=== PATIENT | female | born 1980 | race Caucasian/White ===

== ENCOUNTER 2019-05-07 05:41 | Emergency (ER) | payer OTHER ==
[~2019-05-07] VITALS: Ht 154.9 cm; Wt 110.6 kg
[2019-05-07 05:41] VITALS: BP 137/87
--- NOTE | 2019-05-07 06:10 | PHYS DOC ---
Adult General Chief Complaint Chief Complaint: CHEST PAIN [facility] HPI 38-year-old female presents with chest pain. Patient states she's had intermittent chest pain for the last 1 week. The pain starts in her central chest and has radiated to her left arm and her upper back. It appears to be worse with heavy exertion, mostly with lifting boxes. She works as a packaging person. She feels that she is more short of breath doing tasks than normal. This "came out of nowhere". She was not having any issues until recently. Patient also feels like she may have a rapid heartbeat with exertion, but also sometimes when she is standing still. She does not feel like she has a rapid heartbeat at this time. No known family history of arrhythmia. The patient has no personal asthma history. She is not a smoker. She denies fever or chills Review of Systems Review of Systems Constitutional: Denies fever or chills [] Eyes: Denies change in visual acuity, redness, or eye pain [] HENT: Denies nasal congestion or sore throat [] Respiratory: Shortness of breath [] Cardiovascular: No additional information not addressed in HPI [] GI: Denies abdominal pain, nausea, vomiting, bloody stools or diarrhea [] : Denies dysuria or hematuria [] Musculoskeletal: Denies back pain or joint pain [] Integument: Denies rash or skin lesions [] Neurologic: Denies headache, focal weakness or sensory changes [] Endocrine: Denies polyuria or polydipsia [] All other systems were reviewed and found to be within normal limits, except as documented in this note. Allergies Allergies Allergies Coded Allergies Type Severity Reaction Last Updated Verified Penicillins Allergy Unknown 05/07/19 Yes erythromycin base Allergy Unknown 05/07/19 Yes Physical Exam Physical Exam Constitutional: Well developed, morbidly obesity, well nourished, no acute distress, non-toxic appearance. [] HENT: Normocephalic, atraumatic, bilateral external ears normal, oropharynx moist, no oral exudates, nose normal. [] Eyes: PERRLA, EOMI, conjunctiva normal, no discharge. [] Neck: Normal range of motion, no tenderness, supple, no stridor. [] Cardiovascular:Heart rate regular rhythm, no murmur [] Lungs & Thorax: Bilateral breath sounds clear to auscultation [] Abdomen: Bowel sounds normal, soft, no tenderness, no masses, no pulsatile masses. [] Skin: Warm, dry, no erythema, no rash. [] Back: No tenderness, no CVA tenderness. [] Extremities: No tenderness, no cyanosis, no clubbing, ROM intact, no edema. [] Neurologic: Alert and oriented X 3, normal motor function, normal sensory function, no focal deficits noted. [] Psychologic: Affect normal, judgement normal, mood normal. [] EKG EKG Sinus rhythm, rate 75, normal axis, no ST elevations or depressions.[] Radiology/Procedures Radiology/Procedures [] Impressions: Two-view chest dated 05/07/2019. No comparison available. Clinical data indication: Chest pain. FINDINGS: PA and lateral views obtained. Heart and mediastinal contours within normal limits. Lungs are somewhat hyperinflated but otherwise clear. No consolidation or pleural effusion. No pneumothorax. IMPRESSION: No acute radiographic abnormality. Electronically signed by: Aguilar Thomson MD (05/07/2019 6:17 AM) [facility] DICTATED AND SIGNED BY: AGUILAR THOMSON MD DATE: 05/07/19 0617 CC: JODY GANDHI DO; PCP,NO ~ Course & Med Decision Making Course & Med Decision Making Pertinent Labs and Imaging studies reviewed. (See chart for details) The patient's EKG is unremarkable. Her labs are unremarkable. Her troponin is negative. Chest x-ray is negative for acute findings. Her HEART score is 2. Based on what the patient is telling me, she could be struggling more with the recent extremely high humidity. She could also be going in and out of an arrhythmia, though this is merely speculation as I have no evidence of this. I have recommended to the patient that she should follow up with her primary care physician to discuss an outpatient stress test and possibly an event monitor. She is stable for discharge at this time. [] Dragon Disclaimer Dragon Disclaimer This electronic medical record was generated, in whole or in part, using a voice recognition dictation system. The HEART Score for CP Pts HEART Score for Chest Pain: HEART Score for Chest Pain Response (Comments) Value History Moderately Suspicious 1 ECG Normal 0 Age < 45 0 Risk Factors 1 or 2 Risk Factors 1 Troponin < Normal Limit 0 Total 2 Risk Factors: Risk Factors: DM, Current or recent (<one month) smoker, HTN, HLP, family history of CAD, obesity. Risk Scores: Score 0 - 3: 2.5% MACE over next 6 weeks - Discharge Home Score 4 - 6: 20.3% MACE over next 6 weeks - Admit for Clinical Observation Score 7 - 10: 72.7% MACE over next 6 weeks - Early Invasive Strategies Departure Departure: Impression: Primary Impression: Chest pain Disposition: 01 HOME, SELF-CARE Condition: STABLE Referrals: PCP,NO (PCP) Patient Instructions: Chest Pain (Nonspecific), [id number] Problem Qualifiers Primary Impression: Chest pain Chest pain type: precordial pain Qualified Codes: R07.2 - Precordial pain JODY GANDHI DO May 07, 2019 06:10
--- NOTE | 2019-05-07 06:13 | EKG ---
[address] [address] Test Date: 2019-05-07 Test Time: 05:56:08 Pat Name: DANIA RENTERIA Department: Room: Gender: F [employer] Att[employer]: : 1980 Requested By: JDOY GANDHI Order Number: [id number] Reading MD: Measurements Intervals [place] Rate: 75 P: 55 WI: 148 QRS: 51 QRSD: 80 T: 16 QT: 370 QTc: 416 Interpretive Statements SINUS RHYTHM QRS(T) CONTOUR ABNORMALITY CONSIDER ANTEROLATERAL MYOCARDIAL DAMAGE POSSIBLY ABNORMAL ECG RI6.01 No previous ECG available for comparison
--- NOTE | 2019-05-07 06:20 | RAD ---
Two-view chest dated 05/07/2019. No comparison available. Clinical data indication: Chest pain. FINDINGS: PA and lateral views obtained. Heart and mediastinal contours within normal limits. Lungs are somewhat hyperinflated but otherwise clear. No consolidation or pleural effusion. No pneumothorax. IMPRESSION: No acute radiographic abnormality. Electronically signed by: Fabio Thomson MD (05/07/2019 6:17 AM) [facility]
[2019-05-07 06:25] LABS: ALBUMIN 4.2 g/dL (3.4-5.0); CALCIUM 9.2 mg/dL (8.5-10.1); CREATININE 0.9 mg/dL (0.6-1.0); GFR 70.5; POTASSIUM 3.6 mmol/L (3.5-5.1); TOTAL BILIRUBIN 0.2 mg/dL (0.2-1.0); TOTAL PROTEIN 8.6 g/dL (6.4-8.2)
[2019-05-07 06:26] LABS: BASO # 0.1 x10^3/uL (0.0-0.2); BASO % 1 % (0-3); EOS # 0.1 x10^3/uL (0.0-0.7); EOS % 2 % (0-3); HEMATOCRIT 40.7 % (36.0-47.0); HEMOGLOBIN 13.3 g/dL (12.0-15.5); LYMPH # 3.3 x10^3/uL (1.0-4.8); LYMPH % 42 % (24-48); MEAN CORPUSCULAR HEMOGLOBIN 30 pg (25-35); MEAN CORPUSCULAR HGB CONC 33 g/dL (31-37); MEAN CORPUSCULAR VOLUME 91 fL (79-100); MONO # 0.7 x10^3/uL (0.0-1.1); MONO % 9 % (0-9); NEUT # 3.7 x10^3uL (1.8-7.7); NEUT % 47 % (31-73); PLATELET COUNT 250 x10^3/uL (140-400); RED BLOOD COUNT 4.47 x10^6/uL (3.50-5.40); RED CELL DISTRIBUTION WIDTH 13.8 % (11.5-14.5)
== END 2019-05-07 06:49 | disposition home or self-care (01) ==
LOC: ER 05:41
DX: R07.2 Precordial pain (principal); Z88.0 Allergy status to penicillin; Z88.1 Allergy status to other antibiotic agents
CPT/HCPCS: 36415; 71046; 80053; 84484; 85025; 93005; 99285

== ENCOUNTER 2019-09-21 18:42 | Emergency (ER) | payer OTHER ==
[~2019-09-21] VITALS: Ht 157.5 cm; Wt 112.0 kg
[2019-09-21 18:54] VITALS: BP 125/74
--- NOTE | 2019-09-21 19:12 | PHYS DOC ---
Past History Past Medical History: No Pertinent History Past Surgical History: , Other Additional Past Surgical Histo: D&C Alcohol Use: Occasionally Drug Use: None Adult General Chief Complaint Chief Complaint: EARACHE/EAR PAIN HPI HPI 8-year-old female presents with hyperacute hearing. The patient tells me that last few days at work she has felt like her hearing is more sensitive than normal. She has had to wear earplugs for normal noises at work that she has not been wearing hearing protection for the past. She just wants to make sure there is not a problem that is causing this. She denies nasal congestion, cough or any other upper respiratory infection symptoms. Denies trauma. Review of Systems Review of Systems Constitutional: Denies fever or chills [] Eyes: Denies change in visual acuity, redness, or eye pain [] HENT: Increased hearing sensitivity[] Respiratory: Denies cough or shortness of breath [] Cardiovascular: No additional information not addressed in HPI [] GI: Denies abdominal pain, nausea, vomiting, bloody stools or diarrhea [] : Denies dysuria or hematuria [] Musculoskeletal: Denies back pain or joint pain [] Integument: Denies rash or skin lesions [] Neurologic: Denies headache, focal weakness or sensory changes [] Endocrine: Denies polyuria or polydipsia [] All other systems were reviewed and found to be within normal limits, except as documented in this note. Allergies Allergies Allergies Coded Allergies Type Severity Reaction Last Updated Verified Penicillins Allergy Unknown 05/07/19 Yes erythromycin base Allergy Unknown 05/07/19 Yes Physical Exam Physical Exam Constitutional: Well developed, well nourished, no acute distress, non-toxic appearance. [] HENT: Normocephalic, atraumatic, bilateral external ears normal, oropharynx moist, no oral exudates, nose normal. Bilateral tympanic membranes normal.] Eyes: PERRLA, EOMI, conjunctiva normal, no discharge. [] Neck: Normal range of motion, no tenderness, supple, no stridor. [] Cardiovascular:Heart rate regular rhythm, no murmur [] Lungs & Thorax: Bilateral breath sounds clear to auscultation [] Abdomen: Bowel sounds normal, soft, no tenderness, no masses, no pulsatile masses. [] Skin: Warm, dry, no erythema, no rash. [] Back: No tenderness, no CVA tenderness. [] Extremities: No tenderness, no cyanosis, no clubbing, ROM intact, no edema. [] Neurologic: Alert and oriented X 3, normal motor function, normal sensory function, no focal deficits noted. [] Psychologic: Affect normal, judgement normal, mood normal. [] Current Patient Data Vital Signs Vital Signs Date Time Temp Pulse Resp B/P (MAP) Pulse Ox O2 Delivery O2 Flow Rate FiO2 09/21/19 18:54 98.6 74 18 100 Room Air EKG EKG [] Radiology/Procedures Radiology/Procedures [] Course & Med Decision Making Course & Med Decision Making Pertinent Labs and Imaging studies reviewed. (See chart for details) The patient's exam is completely benign. I do not have a medical reason for her increased acuity. I have encouraged her to wearing hearing protection whenever she feels like it is necessary and not worry about it for now. If any new symptoms develop she will seek further evaluation. She is stable for discharge at this time. [] Dragon Disclaimer Dragon Disclaimer This electronic medical record was generated, in whole or in part, using a voice recognition dictation system. Departure Departure: Impression: Primary Impression: Normal ear exam Disposition: HOME, SELF-CARE Condition: STABLE Referrals: PCP,EPI (PCP) JODY GANDHI DO Sep 21, 2019 19:12
== END 2019-09-21 19:15 | disposition home or self-care (01) ==
LOC: ER 18:42
DX: Z01.10 Encounter for examination of ears and hearing without abnormal findings (principal); Z88.0 Allergy status to penicillin; Z88.1 Allergy status to other antibiotic agents
CPT/HCPCS: 99281

== ENCOUNTER 2021-02-24 18:25 | Emergency (ER) | payer OTHER ==
[~2021-02-24] VITALS: Ht 157.5 cm; Wt 115.4 kg
--- NOTE | 2021-02-24 18:50 | PHYS DOC ---
Past History Past Medical History: No Pertinent History Past Surgical History: , Other Additional Past Surgical Histo: D&C Alcohol Use: Occasionally Drug Use: None General Adult EDM: Chief Complaint: COUGH HPI: HPI: 40-year-old female presents with chest pain. The patient has been having sinus congestion for the last 5 days. It felt like it was getting better, but today she has had a central chest pressure. She describes it as a mild heaviness worse with deep breathing. It is in the upper center of her chest and radiates through to her back. She denies diaphoresis. She has no history of cardiac problems. She is not a smoker. No history of asthma. Denies fever or chills. Review of Systems: Review of Systems: Constitutional: Denies fever or chills Eyes: Denies change in visual acuity HENT: Nasal congestion Respiratory: Intermittent cough Cardiovascular: Chest pain GI: Denies abdominal pain, nausea, vomiting, bloody stools or diarrhea : Denies dysuria Musculoskeletal: Thoracic back pain Integument: Denies rash Neurologic: Denies headache, focal weakness or sensory changes Endocrine: Denies polyuria or polydipsia Lymphatic: Denies swollen glands Psychiatric: Denies depression or anxiety Allergies: Allergies: Allergies Coded Allergies Type Severity Reaction Last Updated Verified Penicillins Allergy Unknown 05/07/19 Yes erythromycin base Allergy Unknown 05/07/19 Yes Physical Exam: PE: Constitutional: Well developed, well nourished, morbidly obese, no acute distress, non-toxic appearance. [] HENT: Normocephalic, atraumatic, bilateral external ears normal, oropharynx moist, no oral exudates, nose congested. [] Eyes: PERRLA, EOMI, conjunctiva normal, no discharge. [] Neck: Normal range of motion, no tenderness, supple, no stridor. [] Cardiovascular: Heart rate 72, regular rhythm, no murmur [] Lungs & Thorax: Bilateral breath sounds clear to auscultation [] Abdomen: Bowel sounds normal, soft, no tenderness, no masses, no pulsatile masses. [] Skin: Warm, dry, no erythema, no rash. [] Back: No tenderness, no CVA tenderness. [] Extremities: No tenderness, no cyanosis, no clubbing, ROM intact, no edema. [] Neurologic: Alert and oriented X 3, normal motor function, normal sensory function, no focal deficits noted. [] Psychologic: Affect normal, judgement normal, mood normal. [] Current Patient Data: Vital Signs: Vital Signs Date Time Temp Pulse Resp B/P (MAP) Pulse Ox O2 Delivery O2 Flow Rate FiO2 02/24/21 18:37 98.1 66 18 143/73 (96) 98 EKG: EKG: [] Radiology/Procedures: Radiology/Procedures: [] Impressions: XR CHEST 1V INDICATION: Reason: COUGH. CHEST PAIN. / Spl. Instructions: / History: . COMPARISON STUDY: None. FINDINGS: Lungs: Normal lung volume. No pulmonary mass or consolidation. The tracheobronchial tree and hilar structures are normal. Pleura: No pleural effusion or pneumothorax. Heart and Mediastinum: The cardiomediastinal silhouette is normal. The great vessels of the thorax are normal. Bones and Soft Tissues: The bones and soft tissues are within normal limits. IMPRESSION: No acute cardiopulmonary process. Electronically signed by: Evelia Sánchez MD (02/24/2021 7:22 PM) [facility] DICTATED AND SIGNED BY: EVELIA SÁNCHEZ MD DATE: 02/24/211921 CC: JODY GANDHI DO; DANNA MIMS MD ~MTH0 0 Heart Score: C/O Chest Pain: Yes HEART Score for Chest Pain: HEART Score for Chest Pain Response (Comments) Value History Slighlty/Non-Suspicious 0 ECG Normal 0 Age < 45 0 Risk Factors 1 or 2 Risk Factors 1 Troponin < Normal Limit 0 Total 1 Risk Factors: Risk Factors: DM, Current or recent (<one month) smoker, HTN, HLP, family history of CAD, obesity. Risk Scores: Score 0 - 3: 2.5% MACE over next 6 weeks - Discharge Home Score 4 - 6: 20.3% MACE over next 6 weeks - Admit for Clinical Observation Score 7 - 10: 72.7% MACE over next 6 weeks - Early Invasive Strategies Course & Med Decision Making: Course & Med Decision Making Pertinent Labs and Imaging studies reviewed. (See chart for details) The patient's EKG is unremarkable. Her urinalysis is negative for infection. She is not . CBC is unremarkable. Chest x-ray is negative for acute findings. CMP is unremarkable. I believe the patient has having discomfort from her viral illness. I do not see any life-threatening conditions at this time. She is stable for discharge. [] [place] Disclaimer: Dragyazan Disclaimer: This electronic medical record was generated, in whole or in part, using a voice recognition dictation system. Departure Departure: Impression: Primary Impression: Acute viral syndrome Additional Impressions: Cough Chest wall pain Disposition: HOME / SELF CARE / HOMELESS Condition: STABLE Referrals: DANNA MIMS MD (PCP) Patient Instructions: Chest Wall Pain, [id number], Viral Syndrome JODY GANDHI DO Feb 24, 2021 18:50
--- NOTE | 2021-02-24 19:25 | RAD ---
XR CHEST 1V INDICATION: Reason: COUGH. CHEST PAIN. / Spl. Instructions: / History: . COMPARISON STUDY: None. FINDINGS: Lungs: Normal lung volume. No pulmonary mass or consolidation. The tracheobronchial tree and hilar st ructures are normal. Pleura: No pleural effusion or pneumothorax. Heart and Mediastinum: The cardiomediastinal silhouette is normal. The great vessels of the thorax ar e normal. Bones and Soft Tissues: The bones and soft tissues are within normal limits. IMPRESSION: No acute cardiopulmonary process. Electronically signed by: Jung Alexis MD (02/24/2021 7:22 PM) [facility]
[2021-02-24 19:33] LABS: BILIRUBIN,URINE NEG (NEG); CLARITY,URINE CLEAR; COLOR,URINE YELLOW; GLUCOSE,URINE NEG (NEG); NITRITE,URINE NEG (NEG); UROBILINOGEN,URINE 0.2 mg/dL (0.2 mg/dL)
[2021-02-24 19:35] LABS: BACTERIA,URINE FEW /HPF (0-FEW); SQUAMOUS EPITHELIAL CELL,UR FEW /LPF; WBC,URINE OCC /HPF (0-4)
[2021-02-24 19:44] LABS: BASO # 0.1 x10^3/uL (0.0-0.2); BASO % 1 % (0-3); EOS # 0.1 x10^3/uL (0.0-0.7); EOS % 2 % (0-3); HEMATOCRIT 35.8 % (36.0-47.0); HEMOGLOBIN 11.9 g/dL (12.0-15.5); LYMPH # 2.9 x10^3/uL (1.0-4.8); LYMPH % 34 % (24-48); MEAN CORPUSCULAR HEMOGLOBIN 30 pg (25-35); MEAN CORPUSCULAR HGB CONC 33 g/dL (31-37); MEAN CORPUSCULAR VOLUME 90 fL (79-100); MONO # 0.8 x10^3/uL (0.0-1.1); MONO % 9 % (0-9); NEUT # 4.5 x10^3uL (1.8-7.7); NEUT % 54 % (31-73); PLATELET COUNT 231 x10^3/uL (140-400); RED BLOOD COUNT 3.97 x10^6/uL (3.50-5.40); RED CELL DISTRIBUTION WIDTH 13.5 % (11.5-14.5); WHITE BLOOD COUNT 8.3 x10^3/uL (4.0-11.0)
[2021-02-24 19:59] LABS: CALCIUM 8.5 mg/dL (8.5-10.1); CREATININE 0.9 mg/dL (0.6-1.0); GFR 84.3; POTASSIUM 3.7 mmol/L (3.5-5.1)
[2021-02-24 20:05] LABS: ALBUMIN 3.2 g/dL (3.4-5.0); ALBUMIN/GLOBULIN RATIO 0.8 (1.0-1.7); TOTAL BILIRUBIN 0.2 mg/dL (0.2-1.0); TOTAL PROTEIN 7.4 g/dL (6.4-8.2)
[2021-02-24 20:25] LABS: BARBITURATES NEG (NEG); BENZODIAZEPINES NEG (NEG); CANNABINOIDS NEG (NEG); COCAINE NEG (NEG); METHADONE NEG (NEG); OPIATES NEG (NEG); PHENCYCLIDINE NEG (NEG)
[2021-02-24 20:43] LABS: AMPHETAMINE/METHAMPHETAMINE NEG (NEG)
[2021-02-24 20:48] VITALS: BP 140/72
--- NOTE | 2021-02-24 21:20 | EKG ---
[address] [id number] Test Date: 2021-02-24 Test Time: 19:00:34 Pat Name: DANIA HOLDER Department: Room: Gender: F [employer]ist: IRIS : 1980 Requested By: JODY GANDHI Order Number: [id number] Reading MD: Measurements Intervals [place] Rate: 80 P: 59 VA: 156 QRS: 64 QRSD: 76 T: 24 QT: 366 QTc: 426 Interpretive Statements SINUS RHYTHM OTHERWISE NORMAL ECG RI6.02 No previous ECG available for comparison
== END 2021-02-24 20:52 | disposition home or self-care (01) ==
LOC: ER 18:25
DX: B34.9 Viral infection, unspecified (principal); R07.89 Other chest pain; M54.6 Pain in thoracic spine; E66.01 Morbid (severe) obesity due to excess calories; Z68.42 Body mass index [BMI] 45.0-49.9, adult
CPT/HCPCS: 36415; 71045; 80053; 80307; 81001; 81025; 84484; 85025; 93005; 99285